=== PATIENT | male | born 1995 | race Caucasian/White ===

== ENCOUNTER 2018-02-26 20:55 | Emergency (ER) | payer OTHER ==
[2018-02-26] MEDS ORDERED: HYDROCODONE/ACETAMINOPHEN 5-325 MG (6 TAB/ER DISP) PO PRN (22:43)
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
[2018-02-26 23:10] VITALS: BP 130/77
== END 2018-02-26 23:10 | disposition home or self-care (01) ==
LOC: ER 20:55
DX: S39.012A Strain of muscle, fascia and tendon of lower back, initial encounter (principal); S46.819A Strain of other muscles, fascia and tendons at shoulder and upper arm level, unspecified arm, initial encounter; R51 Headache; V89.2XXA Person injured in unspecified motor-vehicle accident, traffic, initial encounter
CPT/HCPCS: 99283